=== PATIENT | female | born 1960 | race Two or more races ===

== ENCOUNTER 2020-05-06 11:29 | Emergency (ER) | payer OTHER ==
[~2020-05-06] VITALS: Ht 165.1 cm; Wt 56.7 kg
[2020-05-06] MEDS ORDERED: DICLOFENAC SODI50 MG PO (15:48)
[2020-05-06] MEDS ORDERED: ORPHENADRINE C100 MG PO (15:48)
== END 2020-05-06 16:27 | disposition home or self-care (01) ==
LOC: ER 11:29
DX: S51.021A Laceration with foreign body of right elbow, initial encounter (principal); S80.02XA Contusion of left knee, initial encounter; W18.09XA Striking against other object with subsequent fall, initial encounter; Y93.89 Activity, other specified; Y92.69 Other specified industrial and construction area as the place of occurrence of the external cause; Y99.8 Other external cause status